=== PATIENT | female | born 1970 | race Caucasian/White ===

== ENCOUNTER → 2022-10-14 11:40 | Outpatient (CLI) | payer OTHER, SELFPAY ==
--- NOTE | ~2022-10-14 | CT_ITS ---
Non-contrast CT scan of the Abdomen Clinical indication: Hernia Technique: 5 mm axial scans were obtained through the abdomen without intravenous or oral contrast. Dose reduction technique was used on this scan by utilizing automated exposure control and iterative reconstruction technique. The dose-length product (DLP) was 671.39 mGy-cm. Findings: Images through the lung bases reveal no abnormalities. There is no evidence of renal or ureteral calculi. The kidneys and the ureters are nondilated. The liver, spleen, pancreas, gallbladder, and right adrenal gland appear normal. Low-density 1.8 cm l eft adrenal nodule is compatible with adenoma. There is no aortic aneurysm. Visualized bowel loops are unremarkable. No ascites. Impression: No hernia. 1.8 cm left adrenal adenoma, benign. Reviewed, dictated and finalized at location [facility] Impression: No hernia. 1.8 cm left adrenal adenoma, benign.
== END ==
PROVIDERS: PCP Physician Assistant; Visit Provider Surgery
DX: K43.2 Incisional hernia without obstruction or gangrene (principal); D35.02 Benign neoplasm of left adrenal gland
CPT/HCPCS: 74150

== ENCOUNTER 2023-11-18 14:25 | Outpatient (CLI) | payer OTHER, SELFPAY ==
--- NOTE | 2023-11-18 14:33 | ECG_ITS ---
Measurements Intervals [place] Rate: 71 P: 66 [place]: 167 QRS: 63 QRSD: 92 T: 59 QT: 376 QTc: 410 Interpretive Statements SINUS RHYTHM WITHIN NORMAL LIMITS NO PREVIOUS ECG AVAILABLE FOR COMPARISON Electronically Signed On 11-18-2023 15:50:46 NARCOTICS AGENT by Gianfranco Gomes M.D.
== END 2023-11-18 14:26 | disposition home or self-care (01) ==
LOC: CHSCARD 14:29
PROVIDERS: PCP Physician Assistant; Visit Provider Anesthesiology
DX: Z01.818 Encounter for other preprocedural examination (principal); I10 Essential (primary) hypertension
CPT/HCPCS: 93005

== ENCOUNTER 2023-11-22 01:37 | Day surgery (SDC) | payer OTHER, SELFPAY ==
[2023-11-11 14:32] VITALS: BMI 39.0
--- NOTE | 2023-11-11 14:38 | PC.NURSE ---
Report to the Outpatient Waiting Room, entrance under the green pavilion located off [facility], at time 10:00 on date 11/22/23. Planned Procedure Time: 12:00. Time changes happen often and if your time is changed the preop area will call you the afternoon before. - You and your visitor will be asked to self-screen and do not enter if you have any COVID symptoms. - A mask is optional within the hospital at this time. Patients may have clear liquids (water, carbonated beverages, clear teas, apple juice) until 3 hours prior to surgery (9:00) with a maximum of 20 ounces. - No food from midnight until time of surgery Take the following medications with a SIP of water the morning of surgery: NONE DO NOT STOP ANY OF YOUR OTHER PRESCRIPTION MEDICATIONS PRIOR TO SURGERY ?EXCEPT THE FOLLOWING Medications to discontinue per physician: VITAMINS Date to take last dose: 11/18/23 Please no make-up, nail belarusian, hairspray, perfume, deodorant, or body powder the day of surgery. No jewelry (including any body piercings) or valuables the day of surgery, leave them at home. Please take a shower or bath the night before, or the morning of, surgery with an antibacterial soap. Wear comfortable, loose fitting clothing. - Jewelry must be removed prior to entering the operating room. Rings and piercings that are not removed may be cut off. - The hospital will not accept responsibility for valuables. - Please leave all valuables, including medications, at home the day of surgery. If you are going home after surgery, a licensed straight truck driver must drive you home. - NO public transportation without another adult if you receive anesthesia. - We recommend that an adult stay with you for 24 hours following discharge. - We also recommend that you do not drive, make important decision, drink alcoholic beverages, or take any drugs that were not prescribed by your health care provider for at least 24 hours after your discharge time. Follow any additional instructions given to you from your surgeon. If you or anyone in your household have experienced Covid symptoms in the past week, please notify your surgeon or the nurse liaison at the phone number below for possible testing. Telephone instructions given to PT - VIJAY GUZMANERS and asked if any additional questions and then verbalized understanding. Patient advised to call surgeon office or pre surgery nurse liaison [phone] if any additional questions.
[2023-11-22] VITALS (8 sets, daily range): BP systolic 131–159; BP diastolic 82–98; PULSE 58–87; RESP 12–16; TEMP 36.2–36.3; O2SAT 96–98
[2023-11-22] MEDS: LACTATED RINGERS 1,000 ML 30 ML IV CONT (10:40)
[2023-11-22] MEDS: ACETAMINOPHEN 500 MG TABLET 1000 MG PO (10:40)
[2023-11-22] MEDS: KETOROLAC 15 MG/ML VIAL (*BKC) IV PUSH (10:42)
--- NOTE | 2023-11-22 11:05 | WPDHPUPDATE1 ---
History and Physical Update Update Date/Time: 11/22/23 11:05 History and Physical has been reviewed, including an updated exam of the patient. There are NO changes in the patient's condition. Risks, benefits, and alternatives have been discussed and questions answered. Patient agrees to proceed with procedure.
--- NOTE | 2023-11-22 11:27 | WPDANESEPPF ---
Anes - Initial Pre Proc Eval Procedure: Operation Date: 11/22/23 12:00 Proposed Procedures p Laparoscopic Ventral Hernia Repair with Mesh, Davinci Assisted - Madi Melvin DO Date/Time: 11/22/23 11:27 Surgeon: Madi Melvin DO Pre Op Diagnosis: Ventral Hernia Patient Data Age: 53 Gender: F Height: 1.52 m Weight: 88 kg Last Vital Signs Temp 97.4 F L 11/22/23 11:22 Pulse 78 11/22/23 11:22 Resp 16 11/22/23 11:22 BP 151/83 H 11/22/23 11:22 Pulse Ox 96 11/22/23 11:22 O2 Del Method Room Air 11/22/23 11:22 Allergies Allergy/AdvReac Type Severity Reaction Status Date / Time penicillin G Allergy Severe Anaphylaxis Verified 11/11/23 14:31 Home Medications Medication Instructions Recorded Confirmed Type cetirizine 10 mg capsule (Zyrtec) 10 mg PO DAILY PRN Allergy Symptoms 09/14/22 11/11/23 History cholecalciferol (vitamin D3) 25 25 mcg PO DAILY 09/14/22 11/11/23 History mcg (1,000 unit) capsule lisinopril 10 mg tablet 10 mg PO DAILY 09/14/22 11/11/23 History omeprazole 20 mg capsule,delayed 20 mg PO DAILY 11/07/23 11/11/23 History release Laboratory Tests 11/22/23 10:30 Blood Type O Negative Antibody Screen Pending Patient hx anesthesia problems: none Family hx anesthesia problems: none Results Review: All pre-operative results and documents have been reviewed as part of the pre-operative evaluation. FORMERLY [facility] Past Medical History Medical History GERD (gastroesophageal reflux disease) Hypertension Kidney stones Surgical History Surgical History H/O LEEP H/O tubal ligation H/O wrist surgery internal fixation left distal radius History of right oophorectomy Family History Family History Father Acute myocardial infarction Mother Hypertension Sibling Heart disease Ovarian cancer Social History Social History Smoking packs per day: 1.5 Smoking cigarettes per day: 30.0 Years smoked: 20 Smoking pack-years: 30.00 Smoking status: Former smoker Tobacco type: cigarettes Smoking end date: 10/10/04 Alcohol intake: current Drinks per week: 2 Alcohol use details: socially Substance use: never Substance use type: does not use Living arrangements: with family Occupation/Education: occupation 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 Informed Consent: The patient's anesthetic plan and its attendant risks and benefits were discussed with the patient/family/POA. Questions were solicited and answers provided to the satisfaction of the patient/family/POA.
[2023-11-22] MEDS: ceFAZolin 2 GM/D5W 50 ML 2 GM/50 ML BAG IVPB (11:38)
[2023-11-22] MEDS: BUPIVACAINE/EPINEPHRINE 0.5% 30 ML VIAL INFILTRATE (12:03)
--- NOTE | 2023-11-22 13:12 | W.PM.PROC2 ---
Procedure Note - Detailed Date of Procedure 11/22/23 Pre-op Diagnosis Ventral Hernia Post-op Diagnosis Same (4 cm ventral supraumbilical hernia) Procedure Performed Laparoscopic 4 cm ventral hernia repair with mesh, da Dale assisted Surgeon Madi Melvin, Anesthesia General and Local (0.5% bupivacaine with epinephrine) Indications This is a 53-year-old woman who presented with a supraumbilical bulge that was causing some occasional discomfort. She had 1st noticed this a little over a year ago and was minimally symptomatic. Over the past year she has noticed more discomfort when pressure is applied to the area. A CT had been performed 1 year ago and did not show any definite sign of a hernia, but on close review the fascia did have a couple small defects just above the umbilicus. She then presented back with slightly worsening pain and discussions were then made with the patient about treatment options. Decision was made to proceed with robotic assisted laparoscopic ventral hernia repair with mesh. Findings Robotic assisted laparoscopic ventral hernia repair was performed. The patient was found to have 3 small hernia defects within a span of 4 cm starting just superior to the umbilicus and extending cephalad. The total length between the inferior-most hernia and the superior most hernia was 4 cm. Each hernia was only about 1 cm wide. A robotic intraperitoneal onlay mesh technique was utilized for repair. The falciform ligament and preperitoneal fat was excised around the hernias and the fascia was then closed using an 0 Stratafix running absorbable suture. A Ventralight ST 15 cm x 10 cm mesh was then placed and secured to the abdominal wall circumferentially using 2-0 Stratafix running absorbable suture. No specimens were obtained for pathology. Description of Procedure Procedure as well as risks, benefits, and alternatives were discussed with the patient. Written consent was obtained and placed in chart prior to procedure. Patient was brought back to surgical suite. She was placed supine on operating table. Time-out was done to confirm patient and procedure. She was then intubated by the anesthesia department. A bump was placed under her left hip, and the bed was flexed slightly to extend the space between her costal margin and iliac crest. Her abdomen was prepped and draped in sterile fashion using chlorhexidine prep. A 5 millimeter incision was made in the left upper quadrant, and a 5 millimeter Optiview trocar was advanced through the abdominal layers under direct visualization. Once inside the abdominal cavity, carbon dioxide insufflation was used to create a pneumoperitoneum. Her abdomen was inspected. An 8 millimeter incision was made in the left lower quadrant, and an 8 millimeter robotic trocar was placed under direct visualization. Another 8 millimeter incision was made in the left lateral abdomen, and an 8 millimeter robotic trocar was placed under direct visualization. 0.5% bupivacaine with epinephrine was infiltrated around each port site. The 5 millimeter port was removed, and an 8 mm robotic trocar was placed under direct visualization. The robotic arms were brought up to the patient's bedside and secured to the ports. The camera and instruments were inserted, and I then moved over to the robotic console and took control of the camera and instruments. After careful thorough inspection of the abdominal cavity, I began my dissection at the hernia. The preperitoneal fat and hernia sac was excised with electrocautery. The falciform ligament was then also taken down for several cm cephalad to allow adequate visualization around the hernia defects. I then measured the hernia size. There were 3, 1 cm hernias starting just cephalad to the umbilicus and is banding a total distance of 4 cm.. The fascia was closed using an 0-Stratafix running suture in a vertical fashion. A Ventralight ST 15 cm x 10 cm mesh was then placed within th
[2023-11-22] MEDS: fentaNYL CITRATE INJ (*CRX) 100 MCG/2 ML VIAL 25 MCG IV PUSH ×2 (13:32→13:43)
[2023-11-22] MEDS: oxyCODONE HCL (*CRX) 5 MG TAB IR PO (15:13)
== END 2023-11-22 15:44 | disposition home or self-care (01) ==
PROVIDERS: PCP Physician Assistant; Visit Provider Surgery
PROC: (CPT 49593; principal; 2023-11-22 12:00)
DX: K43.9 Ventral hernia without obstruction or gangrene (principal); K21.9 Gastro-esophageal reflux disease without esophagitis; I10 Essential (primary) hypertension; Z87.891 Personal history of nicotine dependence; E66.9 Obesity, unspecified; Z68.37 Body mass index [BMI] 37.0-37.9, adult
CPT/HCPCS: 49593; S2900; 36415; 86850; 86900; 86901; A9270; C1781; J0690; J1100; J1885; J2250; J2405; J2704; J3010; J7120

== ENCOUNTER 2025-07-27 11:18 | Outpatient (CLI) | payer OTHER, SELFPAY ==
--- NOTE | 2025-07-27 11:39 | ECG_ITS ---
Test Date: 2025-07-27 11:49:57 Measurements Intervals [place] Rate: 65 P: 59 TX: 173 QRS: 43 QRSD: 94 T: 72 QT: 382 QTc: 399 Interpretive Statements SINUS RHYTHM MINIMAL Q WAVES- INFERIOR LEADS NONSPECIFIC ST & T-WAVE ABNORMALITY- ANTEROLAT/HIGH LAT LEADS BORDERLINE ECG No previous ECG available for comparison Electronically Signed On 07-27-2025 13:40:49 CDT by Nile Catalan D.O.
== END 2025-07-27 11:19 | disposition home or self-care (01) ==
PROVIDERS: PCP Family Medicine; Visit Provider Obstetrics & Gynecology
DX: N83.8 Other noninflammatory disorders of ovary, fallopian tube and broad ligament (principal); I10 Essential (primary) hypertension; F17.210 Nicotine dependence, cigarettes, uncomplicated
CPT/HCPCS: 36415; 86850; 86900; 86901; 93005

== ENCOUNTER 2025-08-02 01:18 | Day surgery (SDC) | payer OTHER, SELFPAY ==
[2025-07-24 12:50] VITALS: BMI 36.7
--- NOTE | 2025-07-24 12:51 | PC.NURSE ---
[facility] has started construction of its new state of the art ER which will open Spring 2026. With this, we anticipate parking may be a challenge for some our surgical patients and families. Parking spaces are limited but are available for all Surgical, obstetrics, and ER patients sharing this lot. If you arrive and find you are having a hard time finding a parking space, please note that we understand the challenges, please drive around the hospital and park near Hospital Entrance 1. When you enter this entrance, you can ask a volunteer to direct or take you back to the surgical waiting area to check in. We appreciate everyone?s understanding of these expected challenges while we build for your future. Report to the Outpatient Waiting Room, entrance under the green pavilion located off [address], at time _0730_ on date _[id number]_. Planned Procedure Time: _0930_.? Time changes happen often and if your time is changed the preop area will call you the afternoon before. - You and your visitor will be asked to self-screen and do not enter if you have any COVID symptoms. Please call surgeon if you need to reschedule. - A mask is optional within the hospital at this time. Patients may have clear liquids (water, carbonated beverages, clear teas, apple juice) until 3 hours prior to surgery with a maximum of 20 ounces. - No food from midnight until time of surgery and no smoking, or chewing tobacco (or any form of nicotine). No chewing gum, candy or mints. Take only the following medications with a SIP of water on the morning of surgery: ___None DO NOT STOP ANY OF YOUR OTHER PRESCRIPTION MEDICATIONS PRIOR TO SURGERY EXCEPT THE FOLLOWING Hold all vitamins and supplements for 3 days per anesthesiologist. Medications to discontinue per physician Date to take last vjca___[id number]___ Please no make-up, nail turkish, hairspray, perfume, deodorant, or body powder the day of surgery.? No jewelry (including any body piercings) or valuables the day of surgery, leave them at home.? Please take a shower or bath the night before, or the morning of, surgery with an antibacterial soap.? Wear comfortable, loose fitting clothing.? - Jewelry must be removed prior to entering the operating room.? Rings and piercings that are not removed may be cut off. - The hospital will not accept responsibility for valuables.? - Please leave all valuables, including medications, at home the day of surgery. If you are going home after surgery, a licensed diesel truck driver must drive you home.? - NO public transportation without another adult if you receive anesthesia. - We recommend that an adult stay with you for 24 hours following discharge. - We also recommend that you do not drive, make important decision, drink alcoholic beverages, or take any drugs that were not prescribed by your health care provider for at least 24 hours after your discharge time. Follow any additional instructions given to you from your surgeon. Telephone instructions given to __Dale___and asked if any additional questions and then verbalized understanding. Patient advised to call surgeon office or pre surgery nurse liaison [phone] if any additional questions.
--- NOTE | 2025-07-30 07:30 | PM.IMHP ---
H&P: HPI History of Present Illness Date/Time: 07/30/25 07:30 Chief Complaint: Left ovarian mass Narrative: This is a 55-year-old female with a large ovarian mass measuring 11cm in size. She has negative findings consistent with a benign ovarian cyst. She has had hernia surgery item mesh above the umbilicus so will attempt to avoid that. Risks and benefits of this procedure reviewed as including but not exclusive of , aspiration pneumonia, bleeding, transfusion, perforation injury to bowel, bladder, ureters, or other internal organs with need for open laparotomy. She received the ACOG handout entitled laparoscopy. She had all questions answered. She asked to proceed Review of Systems Review of Systems: All systems reviewed & are unremarkable except as noted in HPI and below PMFSH Past Medical History Medical History GERD (gastroesophageal reflux disease) Hypertension Kidney stones Surgical History Surgical History H/O ventral hernia repair laparoscopic 11/22/23 Dr Madi Melvin H/O wrist surgery internal fixation left distal radius History of right oophorectomy H/O LEEP H/O tubal ligation Family History Family History Father Acute myocardial infarction Mother Hypertension Sibling Heart disease Ovarian cancer Social History Social History Smoking packs per day: 1 Smoking cigarettes per day: 20.0 Years smoked: 21 Smoking pack-years: 21.00 Smoking status: Former smoker Tobacco type: cigarettes Smoking end date: 07/24/05 Alcohol intake: current Drinks per week: 2 Alcohol use details: socially Substance use: never Substance use type: does not use Living arrangements: with family Occupation/Education: occupation 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 Spiritual care concerns: No Meds Home Medications and Allergies Home Medications ?Medication ?Instructions ?Recorded ?Confirmed ?Type cetirizine 10 mg capsule (Zyrtec) 10 mg PO DAILY PRN Allergy Symptoms 09/14/22 07/24/25 History cholecalciferol (vitamin D3) 25 25 mcg PO DAILY 09/14/22 07/24/25 History mcg (1,000 unit) capsule lisinopril 10 mg tablet 10 mg PO DAILY 09/14/22 07/24/25 History omeprazole 20 mg capsule,delayed 20 mg PO DAILY 11/07/23 07/24/25 History release Allergies Allergy/AdvReac Type Severity Reaction Status Date / Time penicillin G Allergy Severe Anaphylaxis Verified 07/24/25 12:41 Exam Const: General: cooperative, healthy appearing and comfortable Nutritional Appearance: overweight Orientation/consciousness: oriented to person, oriented to place and oriented to time HENMT: Head: normal to inspection Resp: Effort & Inspection: normal respiratory effort Cardio: Rate: regular rate Rhythm: regular rhythm Heart sounds: S1 normal heart sound present and S2 normal heart sound present GI: Inspection: normal to inspection : External Female Exam: normal external appearance Speculum Exam - Vagina: normal appearance of the vagina Speculum Exam - Cervix: normal appearance of the cervix Bimanual exam- vagina & uterus: non-tender Bimanual Exam- Adnexa, other: Adnexal mass present on the left Assessment and Plan Assessment and plan (1) Ovarian cyst: Code(s): N83.209 - Unspecified ovarian cyst, unspecified side Status: Acute Plan Will proceed with laparoscopic LSO
[2025-08-02] VITALS (8 sets, daily range): BP systolic 106–148; BP diastolic 71–90; PULSE 76–93; RESP 16–18; TEMP 36.1–36.4; O2SAT 93–98
--- NOTE | 2025-08-02 06:47 | WPDHPUPDATE1 ---
History and Physical Update Update Date/Time: 08/02/25 06:47 History and Physical has been reviewed, including an updated exam of the patient. There are NO changes in the patient's condition. Risks, benefits, and alternatives have been discussed and questions answered. Patient agrees to proceed with procedure.
[2025-08-02] MEDS: ACETAMINOPHEN 500 MG TABLET 1000 MG PO (08:15)
[2025-08-02] MEDS: KETOROLAC 15 MG/ML VIAL (*BKC) IV PUSH (08:20)
[2025-08-02] MEDS: LACTATED RINGERS 1,000 ML 30 ML IV CONT ×2 (08:20→10:32)
[2025-08-02] MEDS: SCOPOLAMINE 1 MG PATCH 1 PATCH TRANSDERM (08:44)
--- NOTE | 2025-08-02 09:17 | WPDANESEPP ---
Anes - Eval Pre Procedure Procedure: Operation Date: 08/02/25 09:30 Proposed Procedures p Laparoscopy Left Salpingo-oophorectomy - Jacobo Grider MD Date/Time: 08/02/25 09:17 Pre Op Diagnosis: Lt Ovarian Mass Patient Data Age: 55 Gender: F Height: 1.55 m Weight: 87.5 kg Last Vital Signs Temp 36.1 C L 08/02/25 08:20 Pulse 76 08/02/25 08:20 Resp 18 08/02/25 08:20 BP 148/84 H 08/02/25 08:20 Pulse Ox 98 08/02/25 08:20 O2 Del Method Room Air 08/02/25 08:20 Allergies Allergy/AdvReac Type Severity Reaction Status Date / Time penicillin G Allergy Severe Anaphylaxis Verified 08/02/25 08:33 Home Medications ?Medication ?Instructions ?Recorded ?Confirmed ?Type cetirizine 10 mg capsule (Zyrtec) 10 mg PO DAILY PRN Allergy Symptoms 09/14/22 08/02/25 History cholecalciferol (vitamin D3) 25 25 mcg PO DAILY 09/14/22 08/02/25 History mcg (1,000 unit) capsule lisinopril 10 mg tablet 10 mg PO DAILY 09/14/22 08/02/25 History omeprazole 20 mg capsule,delayed 20 mg PO DAILY 11/07/23 08/02/25 History release hydrocodone 5 mg-acetaminophen 325 1 tablet PO Q4H PRN pain #14 tabs 08/02/25 Rx mg tablet Patient hx anesthesia problems: none Family hx anesthesia problems: none Results Review: All pre-operative results and documents have been reviewed as part of the pre-operative evaluation. FOR[facility]LY [facility] Past Medical History Medical History GERD (gastroesophageal reflux disease) Hypertension Kidney stones Surgical History Surgical History H/O ventral hernia repair laparoscopic 11/22/23 Dr Madi Melvin H/O wrist surgery internal fixation left distal radius History of right oophorectomy H/O LEEP H/O tubal ligation Family History Family History Father Acute myocardial infarction Mother Hypertension Sibling Heart disease Ovarian cancer Social History Social History Smoking packs per day: 1 Smoking cigarettes per day: 20.0 Years smoked: 21 Smoking pack-years: 21.00 Smoking status: Former smoker Tobacco type: cigarettes Smoking end date: 07/24/05 Alcohol intake: current Drinks per week: 2 Alcohol use details: socially Substance use: never Substance use type: does not use Living arrangements: with family Occupation/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
--- NOTE | 2025-08-02 10:17 | S_PTH ---
PATIENT: Leonardo Tucker I LOC: [facility] U#:[id number] AGE/SX: 55/F ROOM: RE08/02/[address]: Jacobo Grider MD : 1970 BED: DIS: 08/02/2025 SPEC #: [id number] RECD: 08/02/25 11:51 STATUS: ANGEL REQ #: [id number] CHANDLER: 08/02/25 10:[address]: Jacobo Last DEPT: [facility] Surgical RECD BY: Lissett Love ENTERED: 08/02/25 11:51 SP TYPE: Surgical OTHR DR: Pina BarreraMD Tissues: A - Cyst Procedures: Hematoxylin and Eosin Stain Gross and Microscopic Level 4
--- NOTE | 2025-08-02 10:19 | W.PM.PROC2 ---
Procedure Note - Detailed Date of Procedure 08/02/25 Pre-op Diagnosis Lt Ovarian Mass Post-op Diagnosis Same Procedure Performed Laparoscopic left salpingo-oophorectomy Surgeon Jacobo Grider MD Anesthesia General Indications 55-year-old female with a large left ovarian cyst Findings Normal-appearing ovary the right normal-appearing uterus. Tubes status post tubal ligation bottle 11 and 12cm clear walled cyst the left Description of Procedure Patient was prepped and draped in the normal sterile fashion placed in dorsal lithotomy position. Under excellent general endotracheal anesthesia weighted speculum placed in posterior fornix vagina. Anterior lip of the cervix grasped with a single-tooth tenaculum. Rouse's cannula inserted the cervix attached to the single-tooth to be used later for uterine manipulation. Bladder was emptied of clear urine the weighted speculum was. The gloves were changed. A supraumbilical incision made the Veress needle passed in the abdomen. Filled with CO2 gas [id number]. The 5mm trocar advanced with the Optiview and no injury seen. Patient placed in Trendelenburg and a suprapubic incision made the 5mm trocar advanced under direct visualization assuring no injury. There were large amount of adhesions and these were sharply dissected away from visualizing area with the LigaSure. Left lower quadrant incision made the 10mm trocar advanced under direct visualization assuring no injury. A large mass was seen in that filled the entire pelvis which would include the entire left ovary and tube. The infundibulopelvic structure was skeletonized clamping burning and cutting until this was free and hemostasis was assured. A needle was placed in the fluid blood within the the mass was suctioned to over 300cc of fluid. This was then placed in an Endo-Catch removed through the left lower quadrant. The hemostasis was assured the the lower sites removed. The gas removed from the abdomen. The upper site removed. The incisions closed with 4 Monocryl glue. Patient went to recovery in satisfactory condition. All sponge, needle, instrument counts were correct. There were no immediate complications Estimated Blood Loss 5 Drains No Packing No Pathology Yes Complications No immediate complications Condition Stable Disposition PACU
[2025-08-02] MEDS: oxyCODONE HCL (*CRX) 5 MG TAB IR PO (11:41)
== END 2025-08-02 12:43 | disposition home or self-care (01) ==
PROVIDERS: PCP Family Medicine; Visit Provider Obstetrics & Gynecology
PROC: (CPT 49320; principal; 2025-08-02 09:30)
DX: D27.1 Benign neoplasm of left ovary (principal); Z98.51 Tubal ligation status; Z87.891 Personal history of nicotine dependence; E66.9 Obesity, unspecified; Z68.36 Body mass index [BMI] 36.0-36.9, adult
CPT/HCPCS: 58661; 88305; A9270; J0360; J1100; J1885; J2003; J2250; J2405; J2704; J3010; J7120